=== PATIENT | female | born 1980 | race Caucasian/White ===

== ENCOUNTER 2025-03-22 06:13 | Day surgery (SDC) | payer OTHER ==
[2025-03-21 10:00] LABS: IMMATURE GRANULOCYTE ABSOLUTE 0.03 K/uL (0-1); NUCLEATED RED BLOOD CELLS 0.0 % (0.0-0.19); PLATELET COUNT (AUTO) 345 K/uL (130-400); RED BLOOD CELL COUNT(AUTO) 4.27 MIL/uL (4.00-5.50); RED CELL DISTRIBUTION WIDTH 12.8 % (11.0-15.5); WHITE BLOOD COUNT (AUTO) 6.2 K/uL (4.8-10.8)
[2025-03-21 10:10] LABS: INR 0.97 (0.85-1.15)
[2025-03-21 10:21] LABS: CREATININE 0.5 mg/dL (0.5-1.0); GLOMERULAR FILTR. RATE CALC 116.0 mL/min (>90); GLUCOSE,RANDOM 82.0 mg/dL (70-105); SODIUM SERUM 139.0 mmol/L (136-145); UREA NITROGEN, BLOOD 12.0 mg/dL (7-18)
[2025-03-21 10:26] LABS: ASPARTATE AMINOTRANSFERASE 10.0 U/L (10-37); TOTAL PROTEIN, SERUM 7.6 g/dL (6.0-8.3)
[2025-03-21 10:29] VITALS: BP 112/74; PULSE 61; RESP 17; TEMP 97.7
--- NOTE | 2025-03-21 12:19 | EKG ---
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
[2025-03-22] VITALS (13 sets, daily range): BP systolic 103–121; BP diastolic 55–67; PULSE 69–89; RESP 16–19; TEMP 96.5–97.6
[~2025-03-22] VITALS: Ht 157.5 cm; Wt 90.2 kg
[~2025-03-22 06:13] MED LIST: TIRZ15PE SQ
[2025-03-22] MEDS: LACTATED RINGERS 1000ML 1,000 ML IV ONE (07:13)
[2025-03-22] MEDS ORDERED: LIDOCAINE PF 100MG/5ML (2%) SYRINGE 5ML ONE (07:18)
[2025-03-22] MEDS ORDERED: SUCCINYLCHOLINE CHLORIDE 20 MG/ML 10 ML VIAL ONE (07:19)
[2025-03-22] MEDS ORDERED: MIDAZOLAM HCL 1 MG/ML 2ML VIAL ONE (07:19)
[2025-03-22] MEDS ORDERED: SUGAMMADEX SODIUM 200 MG/2 ML VIAL IV ONE (07:49)
[2025-03-22] MEDS: LIDOCAINE 1%-EPI 1:100,000 20 ML VIAL ONE ×2 (09:25)
[2025-03-22] MEDS: LIDOCAINE HCL 2% JELLY 5 ML ONE (09:28)
--- NOTE | 2025-03-22 09:59 | OP ---
Operative Note: DATE OF PROCEDURE: 03/22/25 SURGEON: JUDITH MAZARIEGOS MD PRE WAVE ASSEMBLER: [None] ANESTHESIA: [General] ANESTHESIOLOGIST/NIGHT CLUB MANAGER: [] PREOPERATIVE DIAGNOSIS: [Anal fistula. Thrombosed External Hemorrhoid.] POSTOPERATIVE DIAGNOSIS: [Anal fistula. Thrombosed External Hemorrhoid.] SYNOPSIS: [fistula with 10% muscle involved, posterior thrombosed hemorrhoid] PROCEDURE: [Complex Anal fistulotomy. Sclerotherapy of hemorrhoids. Excision of multiple anal tags.] ESTIMATED BLOOD LOSS: [minimal] INDICATIONS: [The patient is a very pleasant 45-year-old female who presents to the office with an anal fistula and a small thrombosed hemorrhoid. She and her family were offered operative management. The complications, risks alternatives and benefits were discussed with her and her family in detail. Risks include infection, bleeding, injury to the sphincter complex causing incontinence, need for further procedures and recurrence of disease. All questions were answered to her satisfaction and she wished to proceed with the operation.] DESCRIPTION OF PROCEDURE: [The patient was brought to the operating theater placed supine on the operating table. After appropriate general anesthesia was administered IV antibiotics given patient is placed in the dorsal lithotomy position. Perineum was prepped and draped in appropriate sterile surgical fashion. Local anesthetic was injected. The patient is noted to have an external opening to the fistula tract in the left anterior anal margin. An anoscope was inserted and a fistula probe was inserted from the external opening to the internal opening without any difficulty whatsoever. Only 10% of the muscle complex was involved. An anal fistulotomy was performed using electrocautery. Granulation tissue was removed with the curette. The internal opening of the fistula tract was cauterized. There was some small anal tags around the area of the were removed to allow for better healing. Excellent hemostasis was achieved. There were no complications. There was a small thrombosed hemorrhoid in the posterior midline which was cauterized. Excellent hemostasis was achieved. There were no complications. The instrument, sponge and needle count reported as correct x2 by nursing staff.] JUDITH MAZARIEGOS MD Mar 22, 2025 09:58
== END 2025-03-22 11:17 | disposition home or self-care (01) ==
LOC: DAH 06:13 → ENDO 06:13
PROVIDERS: ATTEND Surgery
DX: K64.5 Perianal venous thrombosis (principal); K60.321 Anal fistula, complex, initial; E66.9 Obesity, unspecified; Z68.34 Body mass index [BMI] 34.0-34.9, adult; Z98.891 History of uterine scar from previous surgery; Z90.49 Acquired absence of other specified parts of digestive tract; Z80.0 Family history of malignant neoplasm of digestive organs; Z88.1 Allergy status to other antibiotic agents; Z98.890 Other specified postprocedural states
CPT/HCPCS: 80053; 84703; 85025; 85610; 85730; 36415; 93005; 46230; 46275; 88304; A4600; A6260; A4663; J7120 ×2; A4649 ×2; J3010 ×2; J3490 ×4; J1100; J0330; J0665; J2003; J2250; J2704; J2405; J1885; J0690; A4930 ×2; A4215; A4223; A4213; A4222; A4221; J2371